=== PATIENT | female | born 1945 | race Caucasian/White ===

== ENCOUNTER → 2024-01-30 07:15 | Outpatient (REF) | payer MEDICARE, SELFPAY ==
[2024-01-30 09:19] LABS: Blood Urea Nitrogen 25 mg/dl (7-17); Calcium 9.3 mg/dl (8.4-10.2); Carbon Dioxide 24 mmol/L (22-30); Chloride 102 mmol/L (98-107); Glucose 122 mg/dl (70-99); Potassium 4.8 mmol/L (3.5-5.1); Sodium 131 mmol/L (135-145); eGFR > 60.00
== END ==
LOC: REG 07:15
PROVIDERS: ATTENDING PHYSICIAN Specialist; FAMILY PHYSICIAN Family Medicine
DX: E78.1 Pure hyperglyceridemia (principal)
CPT/HCPCS: 36415; 80048

== ENCOUNTER → 2024-02-05 10:36 | Outpatient (REF) | payer MEDICARE, SELFPAY ==
[2024-02-05 12:27] LABS: ALT (SGPT) 30 U/L (0-35); AST (SGOT) 31 U/L (14-36); Albumin 4.4 g/dl (3.5-5.0); Alkaline Phosphatase 77 U/L (38-126); Blood Urea Nitrogen 24 mg/dl (7-17); Calcium 9.6 mg/dl (8.4-10.2); Carbon Dioxide 25 mmol/L (22-30); Chloride 100 mmol/L (98-107); Glucose 112 mg/dl (70-99); Potassium 4.8 mmol/L (3.5-5.1); Sodium 131 mmol/L (135-145); Total Bilirubin 0.4 mg/dl (0.2-1.3); Total Cholesterol 270 mg/dl (50-199); Total Protein 6.6 g/dl (6.3-8.2); Triglyceride 72 mg/dl (10-149); Very Low Density Lipoprotein 14 mg/dl (0-30); eGFR > 60.00
[2024-02-05 12:37] LABS: HDL Cholesterol 126 mg/dl; LDL Cholesterol, Calculated 130 mg/dl
== END ==
LOC: REG 10:36
PROVIDERS: ATTENDING PHYSICIAN Family Medicine
DX: R79.89 Other specified abnormal findings of blood chemistry (principal); E78.2 Mixed hyperlipidemia; E03.9 Hypothyroidism, unspecified; R73.01 Impaired fasting glucose; I10 Essential (primary) hypertension
CPT/HCPCS: 36415; 80053; 80061

== ENCOUNTER → 2024-02-15 07:22 | Outpatient (REF) | payer MEDICARE, SELFPAY | LOC: PAVMRI 07:22 | PROVIDERS: ATTENDING PHYSICIAN Family Medicine | DX: K86.2 Cyst of pancreas (principal) | CPT/HCPCS: 74183; A9575 ==

== ENCOUNTER → 2024-02-15 09:19 | Outpatient (REF) | payer MEDICARE, SELFPAY ==
[2024-02-15 10:26] LABS: % Eosinophils 3.6 % (0-6); % Immature Granulocytes 0.1 % (0-0.5); % Lymphocytes 62.6 % (20.5-51.1); % Monocytes 6.1 % (1.7-9.3); % Neutrophils 26.6 % (42.2-75.2); Absolute Basophils 0.1 10^3/uL (0-0.2); Absolute Eosinophils 0.4 10^3/uL (0-0.7); Absolute Lymphocytes 7.1 10^3/uL (1.2-3.4); Absolute Monocytes 0.7 10^3/uL (0.1-0.6); Hematocrit 38.5 % (37.0-47.0); Hemoglobin 12.3 g/dL (12.0-16.0); Mean Corp Hgb Conc. 31.9 g/dL (33.0-37.0); Mean Corpuscular Volume 87.5 fL (81.0-99.0); Mean Platelet Volume 13.2 fL (7.4-10.4); Nucleated Red Blood Cells % 0 %; Platelet Count 225 10^3/uL (130-400); Red Cell Dist. Width 15.4 % (11.5-14.5); White Blood Cell Count 11.4 10^3/uL (4.8-10.8)
== END ==
LOC: REG 09:19
PROVIDERS: ATTENDING PHYSICIAN Internal Medicine Hematology & Oncology; FAMILY PHYSICIAN Family Medicine
DX: D72.829 Elevated white blood cell count, unspecified (principal)
CPT/HCPCS: 36415; 85025

== ENCOUNTER → 2024-04-25 08:40 | Outpatient (REF) | payer MEDICARE, SELFPAY ==
[2024-04-25 09:55] LABS: Iron 61 ug/dl (37-170)
[2024-04-25 10:05] LABS: Percent Saturation 19 % (20-50); Total Iron Binding Capacity 313 ug/dl (265-497)
[2024-04-25 10:28] LABS: Ferritin 10.4 ng/ml (11.1-264.0)
== END ==
LOC: REG 08:40
PROVIDERS: ATTENDING PHYSICIAN Internal Medicine Hematology & Oncology
DX: Z85.850 Personal history of malignant neoplasm of thyroid (principal); K86.2 Cyst of pancreas; C91.10 Chronic lymphocytic leukemia of B-cell type not having achieved remission
CPT/HCPCS: 36415; 82728; 83540; 83550

== ENCOUNTER → 2024-06-23 13:01 | Outpatient (REF) | payer MEDICARE, SELFPAY ==
[2024-06-23 14:04] LABS: ALT (SGPT) 27 U/L (0-35); AST (SGOT) 30 U/L (14-36); Albumin 4.5 g/dl (3.5-5.0); Alkaline Phosphatase 82 U/L (38-126); Blood Urea Nitrogen 25 mg/dl (7-17); Calcium 9.8 mg/dl (8.4-10.2); Carbon Dioxide 24 mmol/L (22-30); Chloride 103 mmol/L (98-107); Glucose 109 mg/dl (70-99); Potassium 4.5 mmol/L (3.5-5.1); Sodium 137 mmol/L (135-145); Total Bilirubin 0.3 mg/dl (0.2-1.3); Total Protein 6.6 g/dl (6.3-8.2); eGFR > 60.00
[2024-06-23 14:07] LABS: Glycohemoglobin (HgbA1c) 6.5 % (4.0-5.6)
[2024-06-23 14:19] LABS: Free T4 1.85 ng/dl (0.78-2.19)
[2024-06-23 14:32] LABS: TSH < 0.02 uIU/ml (0.47-4.68)
== END ==
LOC: REG 13:01
PROVIDERS: ATTENDING PHYSICIAN Internal Medicine Endocrinology, Diabetes & Metabolism; FAMILY PHYSICIAN Family Medicine
DX: E03.9 Hypothyroidism, unspecified (principal); E11.65 Type 2 diabetes mellitus with hyperglycemia
CPT/HCPCS: 36415; 80053; 83036; 84439; 84443

== ENCOUNTER → 2024-07-16 09:50 | Outpatient (REF) | payer MEDICARE, SELFPAY ==
[2024-07-16 11:34] LABS: ALT (SGPT) 26 U/L (0-35); AST (SGOT) 28 U/L (14-36); Albumin 4.5 g/dl (3.5-5.0); Alkaline Phosphatase 69 U/L (38-126); Blood Urea Nitrogen 20 mg/dl (7-17); Calcium 9.8 mg/dl (8.4-10.2); Carbon Dioxide 24 mmol/L (22-30); Chloride 102 mmol/L (98-107); Glucose 110 mg/dl (70-99); Potassium 4.9 mmol/L (3.5-5.1); Sodium 137 mmol/L (135-145); Total Bilirubin 0.5 mg/dl (0.2-1.3); Total Cholesterol 217 mg/dl (50-199); Total Protein 6.5 g/dl (6.3-8.2); Triglyceride 71 mg/dl (10-149); Very Low Density Lipoprotein 14 mg/dl (0-30); eGFR > 60.00
[2024-07-16 11:38] LABS: Hematocrit 34.4 % (37.0-47.0); Mean Corpuscular Hgb 27.1 pg (27.0-31.0); Mean Corpuscular Volume 84.7 fL (81.0-99.0); Mean Platelet Volume 12.6 fL (7.4-10.4); Platelet Count 225 10^3/uL (130-400); Red Blood Cell Count 4.06 10^6/uL (4.20-5.40); Red Cell Dist. Width 14.3 % (11.5-14.5); White Blood Cell Count 14.7 10^3/uL (4.8-10.8)
[2024-07-16 11:44] LABS: HDL Cholesterol 116 mg/dl; LDL Cholesterol, Calculated 87 mg/dl
[2024-07-16 11:56] LABS: % Basophils 0.5 % (0-2); % Eosinophils 1.9 % (0-6); % Immature Granulocytes 0.2 % (0-0.5); % Lymphocytes 50.6 % (20.5-51.1); % Monocytes 6.5 % (1.7-9.3); % Neutrophils 40.3 % (42.2-75.2); Absolute Basophils 0.1 10^3/uL (0-0.2); Absolute Eosinophils 0.3 10^3/uL (0-0.7); Absolute Lymphocytes 7.4 10^3/uL (1.2-3.4); Absolute Neutrophils 5.9 10^3/uL (1.4-6.5); Nucleated Red Blood Cells % 0 %
[2024-07-16 12:04] LABS: TSH Reflex To Free T4 0.14 uIU/ml (0.47-4.68)
[2024-07-16 12:34] LABS: Free T4 1.78 ng/dl (0.78-2.19)
[2024-07-16 13:41] LABS: Glycohemoglobin (HgbA1c) 6.9 % (4.0-5.6)
== END ==
LOC: REG 09:50
PROVIDERS: ATTENDING PHYSICIAN Family Medicine; REFERRING PHYSICIAN Internal Medicine Endocrinology, Diabetes & Metabolism
DX: E11.69 Type 2 diabetes mellitus with other specified complication (principal); E87.1 Hypo-osmolality and hyponatremia; E78.2 Mixed hyperlipidemia; E89.0 Postprocedural hypothyroidism; Z85.850 Personal history of malignant neoplasm of thyroid; E03.9 Hypothyroidism, unspecified; R53.83 Other fatigue
CPT/HCPCS: 36415; 80053; 80061; 83036; 84439; 84443; 85025

== ENCOUNTER → 2024-07-26 08:02 | Outpatient (REF) | payer MEDICARE, SELFPAY | LOC: RCS 08:02 | PROVIDERS: ATTENDING PHYSICIAN Internal Medicine Cardiovascular Disease; FAMILY PHYSICIAN Family Medicine | DX: I35.8 Other nonrheumatic aortic valve disorders (principal); I34.0 Nonrheumatic mitral (valve) insufficiency | CPT/HCPCS: 93306 ==

== ENCOUNTER 2024-09-15 10:34 | Outpatient (RCR) | payer MEDICARE, SELFPAY | END 2024-09-15 23:59 | disposition home or self-care (01) | LOC: RPT 10:34 | PROVIDERS: ATTENDING PHYSICIAN Specialist; FAMILY PHYSICIAN Family Medicine | DX: M75.42 Impingement syndrome of left shoulder (principal); Z73.6 Limitation of activities due to disability; M62.81 Muscle weakness (generalized) | CPT/HCPCS: 97010; 97110; 97140; 97162 ==

== ENCOUNTER → 2024-11-21 08:10 | Outpatient (REF) | payer MEDICARE, SELFPAY | LOC: WDC 08:10 | PROVIDERS: ATTENDING PHYSICIAN Obstetrics & Gynecology Gynecology; FAMILY PHYSICIAN Family Medicine | DX: Z12.31 Encounter for screening mammogram for malignant neoplasm of breast (principal) | CPT/HCPCS: 77063; 77067 ==

== ENCOUNTER → 2025-01-26 09:59 | Outpatient (REF) | payer MEDICARE, SELFPAY ==
[2025-01-26 11:59] LABS: Microalbumin, Random Urine 0.8 mg/dl (0.6-1.7); Microalbumin/creatinine Ratio 9.7 mg/g
[2025-01-26 12:12] LABS: ALT (SGPT) 47 U/L (0-35); AST (SGOT) 33 U/L (14-36); Albumin 4.5 g/dl (3.5-5.0); Alkaline Phosphatase 81 U/L (38-126); Blood Urea Nitrogen 27 mg/dl (7-17); Calcium 9.9 mg/dl (8.4-10.2); Carbon Dioxide 25 mmol/L (22-30); Chloride 105 mmol/L (98-107); Glucose 109 mg/dl (70-99); Potassium 4.9 mmol/L (3.5-5.1); Sodium 138 mmol/L (135-145); Total Bilirubin 0.5 mg/dl (0.2-1.3); Total Cholesterol 198 mg/dl (50-199); Total Protein 6.6 g/dl (6.3-8.2); eGFR > 60.00
[2025-01-26 12:13] LABS: Glycohemoglobin (HgbA1c) 7.3 % (4.0-5.6)
[2025-01-26 12:17] LABS: % Basophils 0.5 % (0-2); % Eosinophils 2.3 % (0-6); % Immature Granulocytes 0.2 % (0-0.5); % Lymphocytes 65.7 % (20.5-51.1); % Monocytes 4.5 % (1.7-9.3); % Neutrophils 26.8 % (42.2-75.2); Absolute Basophils 0.1 10^3/uL (0-0.2); Absolute Eosinophils 0.4 10^3/uL (0-0.7); Absolute Lymphocytes 11.4 10^3/uL (1.2-3.4); Absolute Monocytes 0.8 10^3/uL (0.1-0.6); Absolute Neutrophils 4.7 10^3/uL (1.4-6.5); Hematocrit 37.9 % (37.0-47.0); Hemoglobin 12.4 g/dL (12.0-16.0); Mean Corp Hgb Conc. 32.7 g/dL (33.0-37.0); Mean Corpuscular Hgb 29.2 pg (27.0-31.0); Mean Corpuscular Volume 89.4 fL (81.0-99.0); Mean Platelet Volume 12.6 fL (7.4-10.4); Nucleated Red Blood Cells % 0 %; Platelet Count 234 10^3/uL (130-400); Red Blood Cell Count 4.24 10^6/uL (4.20-5.40); White Blood Cell Count 17.3 10^3/uL (4.8-10.8)
[2025-01-26 12:18] LABS: Triglyceride 66 mg/dl (10-149); Very Low Density Lipoprotein 13 mg/dl (0-30)
[2025-01-26 12:20] LABS: Free T4 1.19 ng/dl (0.78-2.19)
[2025-01-26 12:26] LABS: HDL Cholesterol 110 mg/dl; LDL Cholesterol, Calculated 75 mg/dl
[2025-01-26 12:34] LABS: TSH 0.56 uIU/ml (0.47-4.68); TSH Reflex To Free T4 0.56 uIU/ml (0.47-4.68)
[2025-01-26 12:38] LABS: Ferritin 25.3 ng/ml (11.1-264.0)
== END ==
LOC: REG 09:59
PROVIDERS: ATTENDING PHYSICIAN Family Medicine; FAMILY PHYSICIAN Internal Medicine Endocrinology, Diabetes & Metabolism
DX: E11.69 Type 2 diabetes mellitus with other specified complication (principal); E87.1 Hypo-osmolality and hyponatremia; E78.2 Mixed hyperlipidemia; E89.0 Postprocedural hypothyroidism; Z85.850 Personal history of malignant neoplasm of thyroid; Z86.2 Personal history of diseases of the blood and blood-forming organs and certain disorders involving the immune mechanism; R53.83 Other fatigue; E61.1 Iron deficiency; E03.9 Hypothyroidism, unspecified; E11.65 Type 2 diabetes mellitus with hyperglycemia; C73 Malignant neoplasm of thyroid gland; R80.0 Isolated proteinuria
CPT/HCPCS: 36415; 80053; 80061; 82043; 82570; 82728; 83036; 84439; 84443; 85025

== ENCOUNTER → 2025-04-24 07:34 | Outpatient (REF) | payer MEDICARE, SELFPAY ==
[2025-04-24 08:32] LABS: Hematocrit 37.2 % (37.0-47.0); Hemoglobin 12.1 g/dL (12.0-16.0); Mean Corp Hgb Conc. 32.5 g/dL (33.0-37.0); Mean Corpuscular Hgb 29.3 pg (27.0-31.0); Mean Corpuscular Volume 90.1 fL (81.0-99.0); Mean Platelet Volume 12.6 fL (7.4-10.4); Platelet Count 217 10^3/uL (130-400); Red Blood Cell Count 4.13 10^6/uL (4.20-5.40); Red Cell Dist. Width 14.4 % (11.5-14.5); White Blood Cell Count 21.6 10^3/uL (4.8-10.8)
[2025-04-24 09:44] LABS: % Basophils 0.5 % (0-2); % Eosinophils 1.5 % (0-6); % Immature Granulocytes 0.2 % (0-0.5); % Lymphocytes 62.7 % (20.5-51.1); % Monocytes 4.8 % (1.7-9.3); % Neutrophils 30.3 % (42.2-75.2); Absolute Basophils 0.1 10^3/uL (0-0.2); Absolute Eosinophils 0.3 10^3/uL (0-0.7); Absolute Immature Granulocytes 0.1 10^3/uL (0-0.05); Absolute Lymphocytes 13.6 10^3/uL (1.2-3.4); Absolute Neutrophils 6.5 10^3/uL (1.4-6.5); Nucleated Red Blood Cells % 0.1 %
[2025-04-24 10:06] LABS: Iron 71 ug/dl (37-170)
[2025-04-24 10:16] LABS: Percent Saturation 25 % (20-50); Total Iron Binding Capacity 284 ug/dl (265-497)
== END ==
LOC: REG 07:34
PROVIDERS: ATTENDING PHYSICIAN Internal Medicine Hematology & Oncology; FAMILY PHYSICIAN Family Medicine
DX: Z85.850 Personal history of malignant neoplasm of thyroid (principal); K86.2 Cyst of pancreas; C91.10 Chronic lymphocytic leukemia of B-cell type not having achieved remission; E11.9 Type 2 diabetes mellitus without complications
CPT/HCPCS: 36415; 82728; 83540; 83550; 85025

== ENCOUNTER → 2025-05-31 09:25 | Outpatient (REF) | payer MEDICARE, SELFPAY ==
[2025-05-31 11:00] LABS: Blood Urea Nitrogen 33 mg/dl (7-17); Calcium 9.7 mg/dl (8.4-10.2); Carbon Dioxide 24 mmol/L (22-30); Chloride 106 mmol/L (98-107); Glucose 158 mg/dl (70-99); Potassium 5.5 mmol/L (3.5-5.1); Sodium 137 mmol/L (135-145); eGFR > 60.00
== END ==
LOC: REG 09:25
PROVIDERS: ATTENDING PHYSICIAN Nurse Practitioner Adult Health; FAMILY PHYSICIAN Family Medicine
DX: Z01.810 Encounter for preprocedural cardiovascular examination (principal)
CPT/HCPCS: 36415; 80048

== ENCOUNTER → 2025-06-05 06:58 | Outpatient (REF) | payer MEDICARE, SELFPAY ==
[2025-06-05 08:24] LABS: Blood Urea Nitrogen 24 mg/dl (7-17); Calcium 9.8 mg/dl (8.4-10.2); Carbon Dioxide 22 mmol/L (22-30); Chloride 102 mmol/L (98-107); Glucose 178 mg/dl (70-99); Potassium 4.9 mmol/L (3.5-5.1); Sodium 131 mmol/L (135-145); eGFR > 60.00
== END ==
LOC: REG 06:58
PROVIDERS: ATTENDING PHYSICIAN Nurse Practitioner Adult Health; FAMILY PHYSICIAN Family Medicine
DX: E86.0 Dehydration (principal); E87.5 Hyperkalemia
CPT/HCPCS: 36415; 80048

== ENCOUNTER → 2025-08-01 09:02 | Outpatient (REF) | payer MEDICARE, SELFPAY | LOC: RAD 09:02 | PROVIDERS: ATTENDING PHYSICIAN Family Medicine | DX: Z13.820 Encounter for screening for osteoporosis (principal); Z78.0 Asymptomatic menopausal state | CPT/HCPCS: 77080 ==

== ENCOUNTER → 2025-08-07 07:27 | Outpatient (REF) | payer MEDICARE, SELFPAY ==
[2025-08-07 10:06] LABS: Blood Urea Nitrogen 25 mg/dl (7-17); Calcium 9.9 mg/dl (8.4-10.2); Carbon Dioxide 24 mmol/L (22-30); Chloride 101 mmol/L (98-107); Glucose 166 mg/dl (70-99); Potassium 4.7 mmol/L (3.5-5.1); Sodium 133 mmol/L (135-145); eGFR > 60.00
== END ==
LOC: REG 07:27
PROVIDERS: ATTENDING PHYSICIAN Nurse Practitioner Adult Health; FAMILY PHYSICIAN Family Medicine
DX: E86.0 Dehydration (principal); E87.5 Hyperkalemia
CPT/HCPCS: 36415; 80048

== ENCOUNTER 2025-09-11 06:48 | Emergency (ER) | payer MEDICARE, SELFPAY ==
[2025-09-11 06:52] VITALS: BP 163/91
--- NOTE | 2025-09-11 08:21 | ED.GENMED ---
History of Present Illness
General
Chief Complaint: Musculo-Skeletal Complaint
Time Seen by Provider: 09/11/25 08:12
Nursing documentation reviewed up to this point in time: agreed with
History of Present Illness
History of Present Illness:
80-year-old female presents to the ER for evaluation of left lower extremity swelling which started within the past few days. Patient denies any injury or trauma. She has chronic left knee pain for which she was referred for joint replacement but
has declined given her age. She denies any pain in the lower leg, only her typical left knee discomfort. No fevers. No cough or cold symptoms. No chest pain or dyspnea. Patient denies any recent travel. She has no prior personal history of
venous thromboembolism. She denies any unexplained weight loss or feeling of abdominal distention. She does see her family physician regularly and has routine screening labs.
Past History
Past History
ED Past Medical History: Asthma, Cancer (Thyroid CA), HTN, Hypercholesterolemia, NIDDM, Hypothyroidism, Psychiatric (Depression) and Other ( IBS, anemia, rectocele, Pyelonephritis)
ED Past Surgical History: Appendectomy, Gynecological (hysterectomy, oophorectomy), Tonsilectomy and Other (hx of multiple breast biopsies, laminectomy, thyroidectomy, rectocele repair 2020)
Social History
Tobacco: Non-smoker
Alcohol: None
Drug: None
Personal:
Living: with family
Employment: Retired
Family History
Family History: Other (n/c)
Review of Systems
Review of Systems
Allergies reviewed?: Yes
Phy Exam
Physical Exam
Physical Exam:
Patient is awake, alert, appears in no acute distress, head is NCAT, PERRL, EOMI mucous membranes moist, conjunctiva pink, heart regular rate and rhythm without murmurs or ectopy, lungs are clear to auscultation without wheezes rales or rhonchi, no
JVD, left lower extremity with significant increase in diameter left calf versus right calf, no erythema or excessive warmth in comparison bilateral lower extremities, no significant joint effusion noted to left knee in comparison to right knee, no
palpable cord, negative Homans, 2+ DP pulse present symmetric bilateral feet, GCS is 15
Course
Orders/Labs/Results
Orders:
Orders
09/11/25 08:20
Venous Doppler Lwr Ext Left [US Periph Venous LOWER Ext LT] Urgent
Comment:
Reason For Exam: edema
Vital Signs
Initial and Last Documented VS:
Initial Vital Signs
Temp Pulse Resp BP Pulse Ox
98.4 F 85 16 163/91 97
09/11/25 06:52 09/11/25 06:52 09/11/25 06:52 09/11/25 06:52 09/11/25 06:52
Last Documented Vital Signs
Temp Pulse Resp BP Pulse Ox
98.4 F 73 16 161/75 97
09/11/25 06:52 09/11/25 08:57 09/11/25 08:57 09/11/25 08:57 09/11/25 08:57
MDM/Problems Addressed
Differential Diagnosis Includes:
Differential diagnosis to consider but not limited to Haque's cyst, DVT along with other etiologies considered
Chronic conditions affecting care:
Advanced age, hypertension, hyper lipidemia, type 2 diabetes, prior thyroid cancer
*Radiology
Radiology exam reviewed: radiology read reviewed (IMPRESSION: 1. No evidence of left lower extremity deep venous thrombosis from the common femoral through the upper calf veins. 2. Complex cystic lesion within the left proximal medial calf,
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
*Pulse Oximetry
SaO2: 97
Oxygen Mode of Delivery: Room air
Patient hypoxic: no
*Critical Care Note
Total Time (30-74mins, 75-104mins- exclusive of procedures): Not Applicable
Update Note
Update Note:
Patient and present at bedside agree with plan for ultrasound. Awaiting results
1000: I discussed with patient and present bedside findings of Haque's cyst on ultrasound, no DVT. I discussed with them continued supportive treatment and follow-up with primary care physician for reevaluation. They expressed
understanding of plan and have no questions at the current time.
ED Attending Note
-
Portions of this chart may have been created with voice recognition software.� Occasional wrong word or��sound alike� substitutions may have occurred due to the inherent limitations of voice recognition software.
Discharge Plan
Departure
Patient Disposition: Home (Routine Discharge)
Date of Disposition: 09/11/25
Time of Disposition: 10:05
Patient with high blood pressure during this ER visit?: Yes
Discharge Problem:
Haque's cyst
Instructions: Haque's Cyst (DC), BLOOD PRESSURE
Prescriptions:
No Action
montelukast 10 MG tablet
10 mg PO HS
metformin 1,000 MG tablet
1,000 mg PO BID
latanoprost 1 DROP drops
1 drp BOTH EYES HS
cranberry fruit 400 MG capsule
400 mg PO DAILY
Patient Comments:
unsure of dosage
albuterol sulfate 1 PUFF HFA aerosol inhaler
2 puff inhalation R Q4HPRN PRN (Reason: shortness of breath)
melatonin 5 MG tablet
10 mg PO HSPRN PRN (Reason: sleep)
levothyroxine 75 mcg Tablet
75 mcg PO DAILY
zinc acetate 50 mg (zinc) Capsule
50 mg PO DAILY
losartan 50 MG tablet
100 mg PO HS Qty: 0 0RF
Rx Instructions:
HOLD if systolic blood pressure <130 while on Oxycodone.
amlodipine 10 MG tablet
10 mg PO HS Qty: 0 0RF
Rx Instructions:
HOLD if systolic blood pressure <130 while on Oxycodone.
ezetimibe 10 mg Tablet
10 mg PO DAILY
docusate sodium [Colace] 100 mg capsule
100 mg PO DAILY
evening primrose oil [Evening [place]] 500 mg Capsule
500 mg PO DAILY
lecithin 1,200 mg Capsule
1,200 mg PO DAILY
cyanocobalamin (vitamin B-12) 1,000 mcg Tablet
1,000 mcg PO DAILY
milk thistle 150 mg Capsule
300 mg PO DAILY
ferrous sulfate [iron] 325 mg (65 mg iron) Tablet
325 mg PO DAILY
vitamin B complex [Super B Complex] Tablet
1 tab PO DAILY
Hair,Skin and Nails Tablet
1 tab PO DAILY
cholecalciferol (vitamin D3) [Vitamin D3] 50 mcg (2,000 unit) Tablet
50 mcg PO DAILY
Focus Factor
1 dose PO DAILY
Patient Comments:
unsure of dosage
Rx Instructions:
unsure of dosage
T[place]ono 3
1 dose PO DAILY
Patient Comments:
unsure of dosage
Rx Instructions:
unsure of dosage
chromium
1 dose PO DAILY
Patient Comments:
unsure of dosage
krill oil
1 dose PO DAILY
Patient Comments:
unsure of dosage
Rx Instructions:
unsure of dosage
turmeric root-enrique root ext
1 dose PO DAILY
Patient Comments:
unsure of dosage
Rx Instructions:
unsure of dosage
tyrosine
1 dose PO DAILY
oxycodone 5 mg tablet
5 - 10 mg PO Q6H PRN (Reason: moderate-severe pain) Qty: 30 0RF
Rx Instructions:
1 tab for moderate pain, 2 if severe.
Dx total joint.
gabapentin 300 mg capsule
300 mg PO HS Qty: 10 0RF
ondansetron HCl 4 mg tablet
4 mg PO Q6H PRN (Reason: nausea and vomiting) Qty: 30 0RF
cefadroxil 500 mg capsule
500 mg PO BID Qty: 14 0RF
Rx Instructions:
Start night of discharge and continue twice a day until finished.
Take with probiotic.
mupirocin 2 % ointment
1 applic intranasal BID Qty: 1 0RF
fluticasone propion-salmeterol [Advair Diskus] 250-50 mcg/dose Blister With Device
1 inh INHALATION Q12H
Referrals:
Tod Sotomayor Jr., DO [Family Provider, Internal Medicine]
Activity Restrictions/Additional Instructions:
When you are not walking, please elevate your leg to help with swelling. Please follow-up with your primary care physician for reevaluation and further care. Return to the ER for any concerns
Interventions
Interventions:
*Risk Screen - Suicide Last Done: 09/11/25 06:52
*General Assessment Last Done: 09/11/25 06:52
*Neglect/Abuse Screening Last Done: 09/11/25 06:52
*ED- Fall Risk Assessment Last Done: 09/11/25 08:51
*ED COVID-19 Vaccine History Last Done: 09/11/25 08:51
*ED Influenza Vaccine History Last Done: 09/11/25 08:51
ED-Musculoskeletal Assessment Last Done: 09/11/25 08:51
Discharge Date and Time
Print Language: MONGOLIAN
[2025-09-11 08:57] VITALS: BP 161/75
== END 2025-09-11 10:14 | disposition home or self-care (01) ==
LOC: EMR 06:48
PROVIDERS: EMERGENCY PHYSICIAN Emergency Medicine; FAMILY PHYSICIAN Family Medicine
DX: M71.22 Synovial cyst of popliteal space [Baker], left knee (principal); R22.42 Localized swelling, mass and lump, left lower limb; J45.909 Unspecified asthma, uncomplicated; I10 Essential (primary) hypertension; E78.00 Pure hypercholesterolemia, unspecified; E11.9 Type 2 diabetes mellitus without complications; E03.9 Hypothyroidism, unspecified; K58.9 Irritable bowel syndrome, unspecified; Z85.850 Personal history of malignant neoplasm of thyroid; Z90.49 Acquired absence of other specified parts of digestive tract; Z90.710 Acquired absence of both cervix and uterus; Z90.721 Acquired absence of ovaries, unilateral; Z96.60 Presence of unspecified orthopedic joint implant
CPT/HCPCS: 99284; 93971

== ENCOUNTER → 2025-09-15 08:19 | Outpatient (REF) | payer MEDICARE, SELFPAY ==
[2025-09-15 09:40] LABS: Hematocrit 36.3 % (37.0-47.0); Hemoglobin 12.0 g/dL (12.0-16.0); Mean Corp Hgb Conc. 33.1 g/dL (33.0-37.0); Mean Corpuscular Volume 87.9 fL (81.0-99.0); Platelet Count 305 10^3/uL (130-400); Red Cell Dist. Width 14.7 % (11.5-14.5)
[2025-09-15 10:02] LABS: Glycohemoglobin (HgbA1c) 6.3 % (4.0-5.9)
[2025-09-15 10:19] LABS: ALT (SGPT) 29 U/L (0-35); AST (SGOT) 30 U/L (14-36); Albumin 4.5 g/dl (3.5-5.0); Alkaline Phosphatase 61 U/L (38-126); Blood Urea Nitrogen 16 mg/dl (7-17); Calcium 9.8 mg/dl (8.4-10.2); Carbon Dioxide 27 mmol/L (22-30); Chloride 94 mmol/L (98-107); Glucose 107 mg/dl (70-99); Iron 76 ug/dl (37-170); Potassium 4.9 mmol/L (3.5-5.1); Sodium 128 mmol/L (135-145); Total Protein 6.6 g/dl (6.3-8.2); Very Low Density Lipoprotein 12 mg/dl (0-30); eGFR > 60.00
[2025-09-15 10:29] LABS: Total Iron Binding Capacity 297 ug/dl (265-497)
[2025-09-15 10:30] LABS: HDL Cholesterol 120 mg/dl; LDL Cholesterol, Calculated 88 mg/dl
[2025-09-15 10:48] LABS: Ferritin 29.6 ng/ml (11.1-264.0)
[2025-09-15 11:09] LABS: Nucleated Red Blood Cells % 0 %
== END ==
LOC: REG 08:19
PROVIDERS: ATTENDING PHYSICIAN Family Medicine
DX: E11.69 Type 2 diabetes mellitus with other specified complication (principal); E87.1 Hypo-osmolality and hyponatremia; E78.2 Mixed hyperlipidemia; E89.0 Postprocedural hypothyroidism; Z85.850 Personal history of malignant neoplasm of thyroid; Z86.2 Personal history of diseases of the blood and blood-forming organs and certain disorders involving the immune mechanism; E61.1 Iron deficiency; R53.83 Other fatigue
CPT/HCPCS: 36415; 80053; 80061; 82728; 83036; 83540; 83550; 84443; 85025

== ENCOUNTER → 2025-10-02 08:30 | Outpatient (REF) | payer MEDICARE, SELFPAY ==
[2025-10-02 09:51] LABS: Hematocrit 37.9 % (37.0-47.0); Hemoglobin 12.1 g/dL (12.0-16.0); Mean Corp Hgb Conc. 31.9 g/dL (33.0-37.0); Mean Corpuscular Volume 91.5 fL (81.0-99.0); Platelet Count 278 10^3/uL (130-400); Red Cell Dist. Width 14.6 % (11.5-14.5)
[2025-10-02 10:03] LABS: Glycohemoglobin (HgbA1c) 6.7 % (4.0-5.9)
[2025-10-02 10:11] LABS: ALT (SGPT) 32 U/L (0-35); AST (SGOT) 33 U/L (14-36); Albumin 4.6 g/dl (3.5-5.0); Alkaline Phosphatase 58 U/L (38-126); Blood Urea Nitrogen 22 mg/dl (7-17); Calcium 10.0 mg/dl (8.4-10.2); Carbon Dioxide 27 mmol/L (22-30); Chloride 98 mmol/L (98-107); Glucose 120 mg/dl (70-99); Iron 80 ug/dl (37-170); Potassium 4.8 mmol/L (3.5-5.1); Sodium 130 mmol/L (135-145); Total Protein 7.0 g/dl (6.3-8.2); Very Low Density Lipoprotein 19 mg/dl (0-30); eGFR > 60.00
[2025-10-02 10:21] LABS: HDL Cholesterol 125 mg/dl; LDL Cholesterol, Calculated 105 mg/dl; Total Iron Binding Capacity 297 ug/dl (265-497)
[2025-10-02 10:33] LABS: Nucleated Red Blood Cells % 0 %
[2025-10-02 13:10] LABS: Ferritin 28.6 ng/ml (11.1-264.0)
== END ==
LOC: REG 08:30
PROVIDERS: ATTENDING PHYSICIAN Family Medicine
DX: E11.69 Type 2 diabetes mellitus with other specified complication (principal); E87.1 Hypo-osmolality and hyponatremia; E78.2 Mixed hyperlipidemia; E89.0 Postprocedural hypothyroidism; Z85.850 Personal history of malignant neoplasm of thyroid; Z86.2 Personal history of diseases of the blood and blood-forming organs and certain disorders involving the immune mechanism; E61.1 Iron deficiency; R53.83 Other fatigue
CPT/HCPCS: 36415; 80053; 80061; 82728; 83036; 83540; 83550; 84443; 85025